=== PATIENT | female | born 1975 | race Hispanic/Latino ===

== ENCOUNTER → 2019-08-06 | Outpatient (CLI) | payer OTHER ==
--- NOTE | 2019-08-07 09:50 | Diagnostic Imaging Report ---
Exam: Pelvic ultrasound. History: Pelvic pain Comparison: None Findings: The patient has an intrauterine device. Transabdominal and endovaginal sonographic evaluation of the pelvis. The uterus is retroverted in position, measuring 8.3 x 5.7 x 7.0cm. Endometrial stripe thickness is 19 millimeters. The right ovary measures 3.7 x 1.9 x 3.5 cm and contains a 3.0 x 1.5 x 2.3 cm anechoic cyst with a daughter cyst sign. The left ovary measures 2.4 x 1.3 x 1.8 cm and appears unremarkable. No free fluid in the pelvis. Impression: Retroverted uterus with endometrial thickening up to 19 mm. Right ovary containing a 3.0 cm anechoic cyst. In a patient of reproductive age, this is likely a physiologic finding and does not require further imaging follow-up. Unremarkable appearing left ovary. Signed by: Sheryl Lange MD on 08/07/2019 9:46 AM
== END ==
LOC: US 16:46
PROVIDERS: ATTEND Family Medicine
DX: R10.2 Pelvic and perineal pain (principal); N83.201 Unspecified ovarian cyst, right side
CPT/HCPCS: 76830; 76856

== ENCOUNTER → 2019-08-09 | Outpatient (CLI) | payer OTHER | LOC: MAMMO 15:36 | PROVIDERS: ATTEND Obstetrics & Gynecology | DX: Z12.31 Encounter for screening mammogram for malignant neoplasm of breast (principal) | CPT/HCPCS: 77067 ==